=== PATIENT | female | born 1980 | race Caucasian/White ===

== ENCOUNTER 2016-11-08 21:49 | Emergency (ER) | payer MEDICAID ==
[~2016-11-08] VITALS: Ht 160 cm; Wt 47.6 kg
[~2016-11-08 21:49] MED LIST: LORA1TAB82 PO; SERT100T PO
[2016-11-08 22:11] VITALS: BP 109/79
[2016-11-08] MEDS ORDERED: TDAP [DIPH/PERTUSSIS/TET] 0.5 ML VIAL IM ONE ×2 (22:30→22:31)
== END 2016-11-08 23:25 | disposition home or self-care (01) ==
LOC: ER 21:56
DX: S60.452A Superficial foreign body of right middle finger, initial encounter (principal); F32.9 Major depressive disorder, single episode, unspecified; F43.10 Post-traumatic stress disorder, unspecified; F17.200 Nicotine dependence, unspecified, uncomplicated; Z90.49 Acquired absence of other specified parts of digestive tract; Z98.51 Tubal ligation status; W45.8XXA Other foreign body or object entering through skin, initial encounter; Y93.89 Activity, other specified; Y92.89 Other specified places as the place of occurrence of the external cause; Y99.8 Other external cause status
CPT/HCPCS: 90715; A4606; Z7610